=== PATIENT | male | born 1980 | race African-American/Black ===

== ENCOUNTER 2016-07-20 02:06 | Emergency (ER) | payer SELFPAY ==
[~2016-07-20 02:06] MED LIST: NO HOME MEDS; PROMETHAZINE V240 ML PO
[2016-07-20] MEDS ORDERED: KETOCONAZOLE120 M2 TP (05:51)
[2016-07-20] MEDS ORDERED: BACTRIM DS TAB1 EAC2 PO (06:00)
== END 2016-07-20 06:30 ==
LOC: EDMED 02:06
DX: L73.9 Follicular disorder, unspecified (principal); L65.9 Nonscarring hair loss, unspecified; H60.93 Unspecified otitis externa, bilateral